=== PATIENT | male | born 1990 | race Caucasian/White ===

== ENCOUNTER 2017-01-20 09:18 | Emergency (ER) | payer OTHER ==
[~2017-01-20] VITALS: Ht 172.7 cm; Wt 88.0 kg
[2017-01-20 10:36] LABS: HEMATOCRIT 43.7 % (38.0-50.0); MCH 30.6 PG (29.0-34.0); MCHC 34.3 G/DL (30.0-36.0); MCV 89.2 FL (86-99); MEAN PLAT.VOLUME 9.1 uM^3 (9.0-12.4); PLATELET COUNT 225 K/uL (156-360); RBC DIS.WIDTH-CV 11.8 % (11.8-14.6); RBC DIS.WIDTH-SD 38.2 % (39-53); WHITE BLOOD COUNT 8.6 K/uL (4.1-10.2)
[2017-01-20 10:49] LABS: CHLORIDE 105 mEq/L (99-109); POTASSIUM 4.1 mEq/L (3.7-5.4); SODIUM 137 mEq/L (136-147)
[2017-01-20 10:51] LABS: GLUCOSE 96 mg/dL (70-99)
[2017-01-20 10:52] LABS: ANION GAP 11 MEQ/L (2-14)
[2017-01-20 10:54] LABS: GFR ESTIMATE (CALCULATED) > 59 mL/min/
[2017-01-20 10:55] LABS: UREA NITROGEN (BUN) 9 mg/dL (9-23)
[2017-01-20 11:01] LABS: TROP-I INTERPRETATION NEGATIVE; TROPONIN-I < 0.01 ng/mL (0.0-0.30)
[2017-01-20 13:05] LABS: D-DIMER ELISA < 0.15 mg/L FEU (< 0.57)
[2017-01-20 14:08] VITALS: BP 125/92
== END 2017-01-20 14:09 | disposition home or self-care (01) ==
LOC: EME 09:18
DX: R07.9 Chest pain, unspecified (principal)
CPT/HCPCS: 71020; 80048; 84484; 85027; 85379; 93005; 99281; 99284

== ENCOUNTER 2017-01-22 19:58 | Inpatient (IN) | payer OTHER ==
[~2017-01-22] VITALS: Ht 172.7 cm; Wt 87.9 kg
[2017-01-22 20:19] LABS: HEMATOCRIT 42.8 % (38.0-50.0); MCH 30.5 PG (29.0-34.0); MCHC 34.8 G/DL (30.0-36.0); MCV 87.5 FL (86-99); MEAN PLAT.VOLUME 8.7 uM^3 (9.0-12.4); PLATELET COUNT 212 K/uL (156-360); RBC DIS.WIDTH-CV 11.7 % (11.8-14.6); RBC DIS.WIDTH-SD 37.7 % (39-53); RED BLOOD COUNT 4.89 M/uL (4.00-5.50); WHITE BLOOD COUNT 6.4 K/uL (4.1-10.2)
[2017-01-22 20:30] LABS: CHLORIDE 103 mEq/L (99-109); POTASSIUM 3.4 mEq/L (3.7-5.4); SODIUM 137 mEq/L (136-147)
[2017-01-22 20:31] LABS: GLUCOSE 105 mg/dL (70-99)
[2017-01-22 20:33] LABS: ANION GAP 9 MEQ/L (2-14)
[2017-01-22 20:35] LABS: GFR ESTIMATE (CALCULATED) > 59 mL/min/
[2017-01-22 20:36] LABS: UREA NITROGEN (BUN) 12 mg/dL (9-23)
[2017-01-22 21:43] LABS: TOTAL BILIRUBIN 0.6 mg/dL (0.0-1.0)
[2017-01-22 21:44] LABS: ALKALINE PHOSPHATASE 50 IU/L (3-129)
[2017-01-22 21:47] LABS: DIRECT BILIRUBIN 0.3 mg/dL (0.0-0.3)
[2017-01-22 21:48] LABS: LIPASE 13 U/L (1.0-51.0)
[2017-01-22 23:23] LABS: ADD MIUA? NO; BILIRUBIN NEGATIVE; BLOOD NEGATIVE; COLOR YELLOW ((YELLOW)); GLUCOSE (STRIP) NEGATIVE; KETONES 80; LEUKOCYTES NEGATIVE; NITRITE NEGATIVE; PROTEIN (STRIP) 30; SPECIFIC GRAVITY 1.025 (1.000-1.030); UCUL ADDED? NO
[2017-01-22] MEDS ORDERED: PROAIR HFA8.5 GM IH (23:41)
[2017-01-22] MEDS ORDERED: LEVAQUIN750 MG PO (23:41)
[2017-01-23] MEDS ORDERED: ADVIL,NUPRIN,M200 MG PO (01:08)
[2017-01-23 03:15] VITALS: BP 119/63
[2017-01-23 07:39] VITALS: BP 104/67
[2017-01-23 15:45] VITALS: BP 148/90
[2017-01-23 22:42] VITALS: BP 133/70
[2017-01-24 07:01] LABS: EOSINOPHIL (%) 0.3 % (0-5); HEMATOCRIT 35.2 % (38.0-50.0); INSTRUMENT ABS NEUTROPHIL CT 1.4 K/uL; LYMPHOCYTE COUNT 1.2 K/uL (1.0-2.8); MCH 30.3 PG (29.0-34.0); MCHC 34.1 G/DL (30.0-36.0); MCV 88.9 FL (86-99); MEAN PLAT.VOLUME 9.1 uM^3 (9.0-12.4); MONOCYTE (%) 21.2 % (3-12); MONOCYTE COUNT 0.7 K/uL (0-0.8); NEUTROPHIL (%) 42.1 % (45-76); NEUTROPHIL COUNT 1.4 K/uL (1.8-6.4); PLATELET COUNT 187 K/uL (156-360); RBC DIS.WIDTH-CV 11.6 % (11.8-14.6); RBC DIS.WIDTH-SD 37.3 % (39-53); RED BLOOD COUNT 3.96 M/uL (4.00-5.50); WHITE BLOOD COUNT 3.4 K/uL (4.1-10.2)
[2017-01-24 07:05] VITALS: BP 133/81
[2017-01-24 07:13] LABS: ANION GAP 5 MEQ/L (2-14); CHLORIDE 102 MEQ/L (99-109); GFR ESTIMATE (CALCULATED) > 59 mL/min/; GLUCOSE 97 mg/dL (70-99); POTASSIUM 3.7 MEQ/L (3.7-5.4); SAMPLE HEMOLYSIS CHECK 0; SAMPLE ICTERIC CHECK 0; SAMPLE LIPEMIA CHECK 0; SODIUM 136 MEQ/L (136-147); UREA NITROGEN (BUN) 6 mg/dL (9-23)
[2017-01-24 15:43] VITALS: BP 128/73
[2017-01-25 00:36] VITALS: BP 122/71
[2017-01-25] MEDS ORDERED: LEVAQUIN750 MG PO (07:27)
[2017-01-25] MEDS ORDERED: PREDNISONE10 MG PO (07:28)
[2017-01-25] MEDS ORDERED: PROAIR HFA8.5 GM IH (07:29)
[2017-01-25] MEDS ORDERED: DILAUDID4 MG PO (07:30)
[2017-01-25 08:10] VITALS: BP 145/68
== END 2017-01-25 09:30 | disposition home or self-care (01) | DRG 194 ==
LOC: EME 19:58 → 5EAST 01-23 02:20 → EDOF 01-23 02:20 → 5EAST 01-23 03:12
PROVIDERS: Emergency Medicine; Family Medicine
DX: J18.9 Pneumonia, unspecified organism (principal); J98.11 Atelectasis; M41.9 Scoliosis, unspecified; E86.0 Dehydration
CPT/HCPCS: 71020; 71275; 74177; 76705; 80048; 80076; 81003; 83690; 85025; 85027; 93005; 94640; 94640 76; 94760; 94799; 99202; 99281; 99285; J0456; J0696; J2270; J2405; J2930; J7030; J7050

== ENCOUNTER 2017-07-31 00:57 | Emergency (ER) | payer OTHER ==
[~2017-07-31] VITALS: Ht 172.7 cm; Wt 86.7 kg
[~2017-07-31 00:57] MED LIST: ADVIL,NUPRIN,M200 MG PO; DILAUDID4 MG PO; LEVAQUIN750 MG PO; PREDNISONE10 MG PO; PROAIR HFA8.5 GM IH
[2017-07-31 01:29] LABS: HEMATOCRIT 48.9 % (38.0-50.0); HEMOGLOBIN 17.3 G/DL (12.5-16.6); MCH 30.7 PG (29.0-34.0); MCHC 35.4 G/DL (30.0-36.0); MCV 86.9 FL (86-99); PLATELET COUNT 297 K/uL (156-360); RBC DIS.WIDTH-CV 11.8 % (11.8-14.6); RBC DIS.WIDTH-SD 37.9 % (39-53); RED BLOOD COUNT 5.63 M/uL (4.00-5.50); WHITE BLOOD COUNT 8.2 K/uL (4.1-10.2)
[2017-07-31 01:38] LABS: CHLORIDE 99 mEq/L (99-109); POTASSIUM 3.8 mEq/L (3.7-5.4); SODIUM 133 mEq/L (136-147)
[2017-07-31 01:39] LABS: GLUCOSE 119 mg/dL (70-99)
[2017-07-31 01:43] LABS: CREATININE 1.3 mg/dL (0.6-1.3); GFR ESTIMATE (CALCULATED) > 59 mL/min/ (58.99-99999)
[2017-07-31 01:44] LABS: UREA NITROGEN (BUN) 12 mg/dL (9-23)
[2017-07-31 05:08] LABS: APPEARANCE SL.HAZY ((CLEAR)); BILIRUBIN NEGATIVE; BLOOD NEGATIVE; COLOR AMBER ((YELLOW)); GLUCOSE (STRIP) NEGATIVE; KETONES 5; LEUKOCYTES NEGATIVE; NITRITE NEGATIVE; PROTEIN (STRIP) 100; SPECIFIC GRAVITY 1.034 (1.000-1.030); UROBILINOGEN 0.2 MG/DL (0.2-1.0)
[2017-07-31] MEDS ORDERED: ZOFRAN ODT4 MG PO (05:21)
[2017-07-31 05:42] LABS: BACTERIA 1+ /HPF; EPITHELIAL CELLS NONE SEEN /HPF; HYALINE CASTS 0-5 /LPF; MUCUS 3+ /LPF; RED BLOOD CELLS NONE SEEN /HPF (0-5); UCUL ADDED? NO; WHITE BLOOD CELLS 0-5 /HPF (0-5)
[2017-07-31 05:43] VITALS: BP 109/75
== END 2017-07-31 05:43 | disposition home or self-care (01) ==
LOC: EME 00:57 → EXP 00:57
DX: K52.9 Noninfective gastroenteritis and colitis, unspecified (principal); E86.0 Dehydration
CPT/HCPCS: 80048; 81003; 85027; 93005; 99281; 99285; J2405; J7030